=== PATIENT | male | born 1940 | race Caucasian/White ===

== ENCOUNTER 2019-01-26 15:17 | Emergency (ER) | payer MEDICARE, BC ==
[2019-01-26 15:31] VITALS: BP 181/69; PULSE 66
--- NOTE | 2019-01-26 16:10 | EDM.PDOC ---
ED HPI GENERAL MEDICAL PROBLEM - General Chief Complaint: Laceration Stated Complaint: Laceration Time Seen by Provider: 01/26/19 15:23 Source of Information: Reports: Patient History Limitations: Reports: No Limitations - History of Present Illness INITIAL COMMENTS - FREE TEXT/NARRATIVE: Patient is a 78-year-old who was out in [facility] yesterday he has started his would mail and when they put up like to cut the plaque kicked out and hit him in the head patient is on Plavix and aspirin so a CT was done immediately there was no intracranial bleed bleeding on the scalp was controlled with pressure Onset: Today Duration: Hour(s): (One hour) Location: Reports: Head Quality: Reports: Ache Severity: Mild Improves with: Reports: Other (Pressure dressing) Worsens with: Reports: None Associated Symptoms: Reports: No Other Symptoms Treatments 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: Aspirin, Other Medication(s) (Plavix) - Related Data Allergies Allergy/AdvReac Type Severity Reaction Status Date / Time erythromycin base Allergy Hives Verified 01/26/19 15:21 propoxyphene napsylate Allergy Hives Verified 01/26/19 15:21 [From Darvocet-N] Home Meds: Home Meds Albuterol [Ventolin HFA] 1 puff INH Q4H PRN 09/14/14 [History] Albuterol/Ipratropium [DuoNeb 3.0-0.5 MG/3 ML] 3 ml NEB QID 09/14/14 [History] Budesonide [Pulmicort] 0.5 mg IH BID 09/14/14 [History] Calcium Carbonate [Tums Extra Strength] 750 mg PO BID 09/14/14 [History] Cholecalciferol (Vitamin D3) [Vitamin D3] 400 units PO BID 09/14/14 [History] Clopidogrel [Plavix] 75 mg PO DAILY 09/14/14 [History] Fluticasone Propionate [Flonase] 16 gm AMY DAILY 09/14/14 [History] Hydroxychloroquine [Plaquenil] 200 mg PO DAILY 09/14/14 [History] Multivitamin [Daily Vitamin] 1 each PO DAILY 09/14/14 [History] Potassium Chloride [Klor-Con 10] 10 meq PO BIDMEALS 09/14/14 [History] Rosuvastatin [Crestor] 20 mg PO DAILY 09/14/14 [History] Simethicone 80 mg PO BEDTIME PRN 09/14/14 [History] traMADol [Ultram] 50 mg PO Q6H PRN 09/14/14 [History] Acetaminophen [Tylenol] 650 mg PO Q4H PRN #100 tablet 09/15/14 [Rx] Isosorbide Mononitrate [Imdur] 30 mg PO BEDTIME #30 tab.er 09/15/14 [Rx] Levothyroxine [Synthroid] 50 mcg PO ACBREAKFAST #90 tab 09/15/14 [Rx] Metoprolol Succinate [Toprol XL] 12.5 mg PO DAILY #30 tab.er 09/15/14 [Rx] Nitroglycerin [Nitrostat] 0.4 mg SL ASDIRECTED PRN #25 tab.sl 09/15/14 [Rx] Ranitidine [Zantac] 150 mg PO BID #60 tablet 09/15/14 [Rx] Aspirin [Halfprin] 81 mg PO DAILY 03/15/16 [History] Clotrimazole/Betamethasone Dip [Lotrisone Cream] 1 applic TOP BID 03/15/16 [ History] Cyclobenzaprine [Flexeril] 1 tab PO TID 03/15/16 [History] traZODone HCl [Trazodone HCl] 50 mg PO BEDTIME 03/15/16 [History] Acetaminophen [Tylenol] 650 mg PO Q6HR PRN 03/16/16 [History] Past Medical History HEENT History: Reports: Cataract Cardiovascular History: Reports: Angina, Arrhythmia, CAD, Hypertension Other Cardiovascular History: Acute Coronary Occlusion with out myocardial infarction. Mitral Valve Stenosis. Aortic valve Stenosis. Right Bundle Branch Block. Supraventricular premature beats Respiratory History: Reports: COPD Gastrointestinal History: Reports: Colon Polyp, Diverticulosis, GERD, PUD, Other (See Below) Other Gastrointestinal History: unspecified neoplasm of digestive system. gastritis. Diaphragmatic hernia Genitourinary History: Reports: Prostate Disorder, Renal Disease, Urinary Incontinence, Other (See Below) Other Genitourinary History: atrophy of testis. impotence. hypertrophy of breast Musculoskeletal History: Reports: Neck Pain, Chronic, Osteoarthritis Other Musculoskeletal History: carpal tunnel syndrome Endocrine/Metabolic History: Reports: Hypothyroidism Hematologic History: Reports: Anemia - Past Surgical History HEENT Surgical History: Reports: Adenoidectomy, Cataract Surgery, Tonsillectomy Male Surgical History: Reports: TURP-Transurethral Resection of Prostate Musculoskeletal Surgical History: Reports: Shoulder Surgery, Other (See Below) Social & Family History - Tobacco Use Smoking Status *Q: Former Smoker Packs/Tins Daily: 1.0 Used Tobacco, but Quit: Yes Month/Year Tobacco Last Used: - Caffeine Use Caffeine Use: Reports: Coffee - Alcohol Use Days Per Week of Alcohol Use: 2 Number of Drinks Per Day: 1 Total Drinks Per Week: 2 - Recreational Drug Use Recreational Drug Use: No - Living Situation & Occupation Living situation: Reports: Occupation: Retired ED ROS GENERAL - Review of Systems Review Of Systems: See Below Constitutional: Reports: No Symptoms HEENT: Reports: No Symptoms Respiratory: Reports: No Symptoms Cardiovascular: Reports: No Symptoms Endocrine: Reports: No Symptoms GI/Abdominal: Reports: No Symptoms : Reports: No Symptoms Musculoskeletal: Reports: No Symptoms Skin: Reports: No Symptoms Neurological: Reports: No Symptoms Psychiatric: Reports: No Symptoms Hematologic/Lymphatic: Reports: No Symptoms Immunologic: Reports: No Symptoms ED EXAM, SKIN/RASH Exam: See Below Exam Limited By: No Limitations General Appearance: Alert, WD/WN, No Apparent Distress Ears: Normal External Exam, Normal Canal, Hearing Grossly Normal, Normal TMs Nose: Normal Inspection, Normal Mucosa, No Blood Throat/Mouth: Normal Inspection, Normal Lips, Normal Teeth, Normal Gums, Normal Oropharynx, Normal Voice, No Airway Compromise Head: Normocephalic, Other (Laceration of occipital area scalp) Neck: Normal Inspection, Supple, Non-Tender, Full Range of Motion Respiratory/Chest: No Respiratory Distress, Lungs Clear, Normal Breath Sounds, No Accessory Muscle Use, Chest Non-Tender Cardiovascular: Normal Peripheral Pulses, Regular Rate, Rhythm, No Edema, No Gallop, No JVD, No Murmur, No Rub GI/Abdominal: Normal Bowel Sounds, Soft, Non-Tender, No Organomegaly, No Distention, No Abnormal Bruit, No Mass (Male) Exam: Deferred Rectal (Males) Exam: Deferred Back Exam: Normal Inspection, Full Range of Motion, NT Extremities: Normal Inspection, Normal Range of Motion, Non-Tender, No Pedal Edema, Normal Capillary Refill Neurological: Alert, Oriented, CN II-XII Intact, Normal Cognition, Normal Gait, Normal Reflexes, No Motor/Sensory Deficits Psychiatric: Normal Affect, Normal Mood Skin: Wound/Incision (Abrasion superficial about 1-1/2 cm round with a 1 cm ragged edge laceration this was glued with Dermabond a second laceration 4 cm semicircular white with was half a centimeter at the widest point no bleeding this was controlled with Dermabond) Lymphatic: No Adenopathy ED SKIN PROCEDURES - Additional/Other Procedure(s) Other (Free Text) Procedure(s): Patient is a 78-year-old who was hit in the head with a plank while trying to mill At this time he was brought into the ER by ambulance denies loss of consciousness neck pain or any concerns other than right knee pain which is old area was prepped and draped once the area was cleaned using Dermabond the skin was approximated patient tolerated well we'll go ahead and send him home at this point Course - Vital Signs Last Recorded V/S: Last Vital Signs Temp 98.3 F 01/26/19 15:30 Pulse 66 01/26/19 15:30 Resp 12 01/26/19 15:30 BP 181/69 H 01/26/19 15:30 Pulse Ox 68 L 01/26/19 15:30 - Orders/Labs/Meds Orders: Active Orders 24 hr Category Date Time Status Head wo Cont [CT] Stat Exams 01/26/19 15:27 Ordered BASIC METABOLIC PANEL,BMP [CHEM] Stat Lab 01/26/19 15:29 Ordered Labs: Laboratory Tests 01/26/19 Range/Units 15:49 WBC 9.7 (4.0-10.2) K/uL RBC 4.64 (4.33-5.41) M/uL Hgb 13.6 (13.1-16.8) g/dL Hct 42.0 (39.0-49.0) % MCV 90.5 (84.0-98.0) fL MCH 29.3 (28.2-33.3) pg MCHC 32.4 (31.7-36.0) g/dL RDW 14.1 (11.2-14.1) % Plt Count 202 (150-350) K/uL Neut % (Auto) 77.9 (45.0-80.0) % Lymph % (Auto) 10.5 (10.0-50.0) % [place] % (Auto) 8.8 (2.0-14.0) % Eos % (Auto) 2.2 (0.0-5.0) % Baso % (Auto) 0.6 (0.0-2.0) % Neut # (Auto) 7.56 H (1.40-7.00) K/uL Lymph # (Auto) 1.02 (0.50-3.50) K/uL [place] # (Auto) 0.85 (0.00-1.00) K/uL Eos # (Auto) 0.21 (0.00-0.50) K/uL Baso # (Auto) 0.06 (0.00-0.20) K/uL Departure - Departure Time of Disposition: 16:16 Disposition: Home, Self-Care 01 Condition: Fair Clinical Impression: Abrasion, Broken skin - Discharge Information *PRESCRIPTION DRUG MONITORING PROGRAM REVIEWED*: No *COPY OF PRESCRIPTION DRUG MONITORING REPORT IN PATIENT PORSHA: No Additional Instructions: Wound was cleaned and prepped Dermabond was applied patient tolerated well sent home in satisfactory condition follow-up with primary - My Orders Last 24 Hours: My Active Orders 01/26/19 15:27 Head wo Cont [CT] Stat 01/26/19 15:29 BASIC METABOLIC PANEL,BMP [CHEM] Stat - Assessment/Plan Last 24 Hours: My Active Orders 01/26/19 15:27 Head wo Cont [CT] Stat 01/26/19 15:29 BASIC METABOLIC PANEL,BMP [CHEM] Stat
== END 2019-01-26 16:35 | disposition home or self-care (01) ==
LOC: LL.ED 15:17
DX: S01.01XA Laceration without foreign body of scalp, initial encounter (principal); I10 Essential (primary) hypertension; J44.9 Chronic obstructive pulmonary disease, unspecified; K21.9 Gastro-esophageal reflux disease without esophagitis; E03.9 Hypothyroidism, unspecified; M19.90 Unspecified osteoarthritis, unspecified site; Z79.01 Long term (current) use of anticoagulants; Z79.82 Long term (current) use of aspirin; Z88.1 Allergy status to other antibiotic agents; Z88.8 Allergy status to other drugs, medicaments and biological substances; Z79.899 Other long term (current) drug therapy; Z87.891 Personal history of nicotine dependence; W22.8XXA Striking against or struck by other objects, initial encounter
CPT/HCPCS: 12002; 36415; 70450; 80048; 85025; 99284-25

== ENCOUNTER 2019-03-29 20:33 | Emergency (ER) | payer MEDICARE, BC ==
[2019-03-29] MEDS: Labetalol 20 MG/4 ML Syringe ONE (21:01)
[2019-03-29 21:26] LABS: CHLORIDE,CL 104 mmol/L (98-107); SODIUM,NA 142 mmol/L (136-145)
--- NOTE | 2019-03-29 21:30 | EDM.PDOC ---
ED HPI GENERAL MEDICAL PROBLEM - General Chief Complaint: Chest Pain Stated Complaint: Chest pain Time Seen by Provider: 03/29/19 21:26 Source of Information: Reports: Patient History Limitations: Reports: No Limitations - History of Present Illness INITIAL COMMENTS - FREE TEXT/NARRATIVE: Patient is a 79-year-old gentleman who is seen in the ER with history of chest discomfort radiating to the back for the last 12 hours patient states that this is a very pain. 911 was called 4 baby aspirins given an one nitroglycerin with no improvement Onset: Today, Gradual Duration: Hour(s):, Recurring Location: Reports: Chest Quality: Reports: Ache, Throbbing Severity: Moderate Improves with: Reports: None Worsens with: Reports: Breathing, Movement Context: Reports: Exercise Associated Symptoms: Reports: No Other Symptoms Upper Back Pain Score (Numeric/FACES): 0 - Related Data Allergies Allergy/AdvReac Type Severity Reaction Status Date / Time erythromycin base Allergy Hives Verified 01/26/19 15:21 propoxyphene napsylate Allergy Hives Verified 01/26/19 15:21 [From HarshilGuillermina] Home Meds: Home Meds Albuterol/Ipratropium [DuoNeb 3.0-0.5 MG/3 ML] 3 ml NEB Q4HR PRN 09/14/14 [ History] Budesonide [Pulmicort] 0.5 mg IH BID 09/14/14 [History] Calcium Carbonate [Tums Extra Strength] 750 mg PO BIDMEALS 09/14/14 [History] Cholecalciferol (Vitamin D3) [Vitamin D3] 400 units PO BID 09/14/14 [History] Clopidogrel [Plavix] 75 mg PO DAILY 09/14/14 [History] Fluticasone Propionate [Flonase] 16 gm AMY DAILY 09/14/14 [History] Multivitamin [Daily Vitamin] 1 each PO DAILY 09/14/14 [History] Potassium Chloride [Klor-Con 10] 10 meq PO BIDMEALS 09/14/14 [History] traMADol [Ultram] 50 mg PO Q6H PRN 09/14/14 [History] Isosorbide Mononitrate [Imdur] 30 mg PO BEDTIME #30 tab.er 09/15/14 [Rx] Levothyroxine [Synthroid] 50 mcg PO ACBREAKFAST #90 tab 04/28/15 [Rx] Metoprolol Succinate [Toprol XL] 12.5 mg PO DAILY #30 tab.er 09/15/14 [Rx] Nitroglycerin [Nitrostat] 0.4 mg SL ASDIRECTED PRN #25 tab.sl 09/15/14 [Rx] Ranitidine [Zantac] 150 mg PO BID #60 tablet 09/15/14 [Rx] Aspirin [Halfprin] 81 mg PO DAILY 03/15/16 [History] traZODone HCl [Trazodone HCl] 50 mg PO BEDTIME 03/15/16 [History] Acetaminophen [Tylenol] 650 mg PO Q6HR PRN 03/16/16 [History] Fluorometholone [Fluorometholone 0.1% Ophth Susp] 1 drop EYEBOTH BID 03/29/19 [ History] Pravastatin Sodium [Pravastatin (Pravachol)] 40 mg PO BEDTIME 03/29/19 [History] cycloSPORINE [Restasis] 1 drop EYEBOTH BID 03/29/19 [History] Past Medical History HEENT History: Reports: Cataract Cardiovascular History: Reports: Angina, Arrhythmia, CAD, Hypertension Other Cardiovascular History: Acute Coronary Occlusion with out myocardial infarction. Mitral Valve Stenosis. Aortic valve Stenosis. Right Bundle Branch Block. Supraventricular premature beats Respiratory History: Reports: COPD Gastrointestinal History: Reports: Colon Polyp, Diverticulosis, GERD, PUD, Other (See Below) Other Gastrointestinal History: unspecified neoplasm of digestive system. gastritis. Diaphragmatic hernia Genitourinary History: Reports: Prostate Disorder, Renal Disease, Urinary Incontinence, Other (See Below) Other Genitourinary History: atrophy of testis. impotence. hypertrophy of breast Musculoskeletal History: Reports: Neck Pain, Chronic, Osteoarthritis Other Musculoskeletal History: carpal tunnel syndrome Endocrine/Metabolic History: Reports: Hypothyroidism Hematologic History: Reports: Anemia - Past Surgical History HEENT Surgical History: Reports: Adenoidectomy, Cataract Surgery, Tonsillectomy Male Surgical History: Reports: TURP-Transurethral Resection of Prostate Musculoskeletal Surgical History: Reports: Shoulder Surgery, Other (See Below) Social & Family History - Tobacco Use Smoking Status *Q: Never Smoker - Caffeine Use Caffeine Use: Reports: None - Alcohol Use Days Per Week of Alcohol Use: 3 Number of Drinks Per Day: 1 Total Drinks Per Week: 3 - Recreational Drug Use Recreational Drug Use: No - Living Situation & Occupation Living situation: Reports: Occupation: Retired ED ROS GENERAL - Review of Systems Review Of Systems: See Below Constitutional: Reports: No Symptoms HEENT: Reports: No Symptoms Respiratory: Reports: Shortness of Breath Cardiovascular: Reports: Chest Pain Endocrine: Reports: No Symptoms GI/Abdominal: Reports: No Symptoms : Reports: No Symptoms Musculoskeletal: Reports: No Symptoms Skin: Reports: No Symptoms ED EXAM, GENERAL - Physical Exam Exam: See Below Exam Limited By: No Limitations General Appearance: Alert, WD/WN, No Apparent Distress Ears: Normal External Exam, Normal Canal, Hearing Grossly Normal, Normal TMs Ear Exam: Bilateral Ear: Auricle Normal, Canal Normal, TM normal Nose: Normal Inspection, Normal Mucosa, No Blood Throat/Mouth: Normal Inspection, Normal Lips, Normal Teeth, Normal Gums, Normal Oropharynx, Normal Voice, No Airway Compromise Head: Atraumatic, Normocephalic Neck: Normal Inspection, Supple, Non-Tender, Full Range of Motion Respiratory/Chest: Lungs Clear Cardiovascular: Regular Rate, Rhythm GI/Abdominal: Normal Bowel Sounds, Soft, Non-Tender, No Organomegaly, No Distention, No Abnormal Bruit, No Mass (Male) Exam: No Hernia, Normal Inspection, Normal Prostate, Circumcised Rectal (Males) Exam: Normal Exam, Normal Rectal Tone, Prostate Normal Back Exam: Normal Inspection, Full Range of Motion, NT Extremities: Normal Inspection, Normal Range of Motion, Non-Tender, Normal Capillary Refill, No Pedal Edema Neurological: Alert, Oriented, CN II-XII Intact, Normal Cognition, Normal Gait, Normal Reflexes, No Motor/Sensory Deficits Psychiatric: Normal Affect, Normal Mood Skin Exam: Warm, Dry, Intact, Normal Color, No Rash Lymphatic: No Adenopathy Course - Vital Signs Last Recorded V/S: Last Vital Signs Temp 97.6 F 03/29/19 20:43 Pulse 66 03/29/19 20:43 Resp 18 03/29/19 20:43 BP 192/82 H 03/29/19 20:43 Pulse Ox 97 03/29/19 20:43 - Orders/Labs/Meds Orders: Active Orders 24 hr Category Date Time Status Chest 1V Frontal [CR] Routine Exams 03/29/19 Taken CBC WITH AUTO DIFF [HEME] Routine Lab 03/29/19 20:40 Received CK W CKMB [CHEM] Routine Lab 03/29/19 20:40 Received COMPREHENSIVE METABOLIC PN,CMP [CHEM] Routine Lab 03/29/19 20:40 Received D-DIMER QUANTITATIVE [COAG] Routine Lab 03/29/19 20:40 Received INR,PT,PROTHROMBIN TIME [COAG] Routine Lab 03/29/19 20:40 Received LACTIC ACID [CHEM] Routine Lab 03/29/19 20:40 Received MAGNESIUM [CHEM] Routine Lab 03/29/19 20:40 Received PRO B-TYPE NATRIUR PEPT,BNPPRO [CHEM] Routine Lab 03/29/19 20:40 Received PTT,PARTIAL THROMBOPLSTIN TIME [COAG] Routine Lab 03/29/19 20:40 Received TROPONIN I [CHEM] Routine Lab 03/29/19 20:40 Received TSH ULTRASENSITIVE [CHEM] Routine Lab 03/29/19 20:40 Received Meds: Medications Discontinued Medications Generic Name Dose Route Start Last Admin Trade Name Preet PRN Reason Stop Dose Admin Labetalol HCl Confirm 03/29/19 20:56 03/29/19 21:01 Normodyne Administered 03/29/19 20:57 5 mg Dose Administration 20 mg .ROUTE .STK-MED ONE Departure - Departure Time of Disposition: 21:30 Disposition: Home, Self-Care 01 Condition: Good Clinical Impression: Non-cardiac chest pain, Arthritis - Discharge Information *PRESCRIPTION DRUG MONITORING PROGRAM REVIEWED*: No *COPY OF PRESCRIPTION DRUG MONITORING REPORT IN PATIENT PORSHA: No Care Plan Goals: Patient will go home he is to take his regular medications patient blood pressure medications. - My Orders Last 24 Hours: My Active Orders 03/29/19 Chest 1V Frontal [CR] Routine 03/29/19 20:40 CBC WITH AUTO DIFF [HEME] Routine CK W CKMB [CHEM] Routine COMPREHENSIVE METABOLIC PN,CMP [CHEM] Routine D-DIMER QUANTITATIVE [COAG] Routine INR,PT,PROTHROMBIN TIME [COAG] Routine LACTIC ACID [CHEM] Routine MAGNESIUM [CHEM] Routine PRO B-TYPE NATRIUR PEPT,BNPPRO [CHEM] Routine PTT,PARTIAL THROMBOPLSTIN TIME [COAG] Routine TROPONIN I [CHEM] Routine TSH ULTRASENSITIVE [CHEM] Routine - Assessment/Plan Last 24 Hours: My Active Orders 03/29/19 Chest 1V Frontal [CR] Routine 03/29/19 20:40 CBC WITH AUTO DIFF [HEME] Routine CK W CKMB [CHEM] Routine COMPREHENSIVE METABOLIC PN,CMP [CHEM] Routine D-DIMER QUANTITATIVE [COAG] Routine INR,PT,PROTHROMBIN TIME [COAG] Routine LACTIC ACID [CHEM] Routine MAGNESIUM [CHEM] Routine PRO B-TYPE NATRIUR PEPT,BNPPRO [CHEM] Routine PTT,PARTIAL THROMBOPLSTIN TIME [COAG] Routine TROPONIN I [CHEM] Routine TSH ULTRASENSITIVE [CHEM] Routine
[2019-03-29 22:58] VITALS: BP 167/86; PULSE 59
== END 2019-03-29 21:50 | disposition home or self-care (01) ==
LOC: LL.ED 20:33
DX: R07.89 Other chest pain (principal); M19.90 Unspecified osteoarthritis, unspecified site; I25.10 Atherosclerotic heart disease of native coronary artery without angina pectoris; I10 Essential (primary) hypertension; J44.9 Chronic obstructive pulmonary disease, unspecified; E03.9 Hypothyroidism, unspecified; K21.9 Gastro-esophageal reflux disease without esophagitis; Z88.1 Allergy status to other antibiotic agents; Z88.5 Allergy status to narcotic agent; Z79.899 Other long term (current) drug therapy; Z79.51 Long term (current) use of inhaled steroids; Z79.02 Long term (current) use of antithrombotics/antiplatelets; Z79.890 Hormone replacement therapy; Z79.01 Long term (current) use of anticoagulants
CPT/HCPCS: 36415; 71045; 80053; 82550; 82553; 83605; 83735; 83880; 84443; 84484; 85025; 85379; 85610; 85730; 93005; 99285-25; J3490

== ENCOUNTER 2019-04-10 10:21 | Day surgery (SDC) | payer MEDICARE, BC ==
[~2019-04-10 10:21] MED LIST: Propofol 200 MG/20 ML SDV ONE
[2019-04-10] MEDS ORDERED: Sodium Chloride 0.9% 10 ML Syringe FLUSH PRN (11:00)
[2019-04-10] MEDS: Lactated Ringers 1,000 ML IV SCH (11:30)
--- NOTE | 2019-04-10 11:42 | PCM.PN ---
- General Info Date of Service: 04/10/19 - Review of Systems Systems Review Comment:: 79-year-old male with history of colon polyps here for surveillance colonoscopy. He denies any recent change in bowel pattern. He is medically stable to proceed today. His recent history and physical is reviewed and no significant changes are noted. I discussed the proposed colonoscopy with the patient. He agrees to proceed accepting risks. - Patient Data Vitals - Most Recent: Last Vital Signs Temp 97.2 F 04/10/19 10:50 Pulse 61 04/10/19 10:50 Resp 20 04/10/19 10:50 BP 146/74 H 04/10/19 10:50 Pulse Ox 100 04/10/19 10:50 Weight - Most Recent: 78.925 kg Med Orders - Current: Current Medications Lactated Ringer's (Ringers, Lactated) 1,000 mls @ 125 mls/hr IV ASDIRECTED LINDA Last Admin: 04/10/19 11:30 Dose: 125 mls/hr Sodium Chloride (Saline Flush) 10 ml FLUSH ASDIRECTED PRN PRN Reason: Keep Vein Open Discontinued Medications Propofol (Diprivan 20 Ml) Confirm Administered Dose 200 mg .ROUTE .STK-MED ONE Stop: 04/10/19 08:42 - Problem List Review Problem List Initiated/Reviewed/Updated: Yes - My Orders Last 24 Hours: My Active Orders 04/10/19 11:00 Patient Status [ADT] Routine Peripheral IV Care [RC] . DIRECTED Verify Patient Consent Obtain [RC] ASDIRECTED Lactated Ringers [Ringers, Lactated] 1,000 ml IV ASDIRECTED Sodium Chloride 0.9% [Saline Flush] 10 ml FLUSH ASDIRECTED PRN Peripheral IV Insertion Adult [OM.PC] Routine - Assessment Assessment:: history of colon polyps - Plan Plan:: colonoscopy
[2019-04-10] MEDS ORDERED: Propofol 200 MG/20 ML SDV ONE (11:44)
--- NOTE | 2019-04-10 12:26 | PCM.OPNOTE ---
- General Post-Op/Procedure Note Date of Surgery/Procedure: 04/10/19 Operative Procedure(s): Colonoscopy with polypectomy Findings: Polyps x2 Extensive Sigmoid Diverticulosis Pre Op Diagnosis: History of colon polyps Post-Op Diagnosis: Colon Polyps. Sigmoid Diverticulosis Anesthesia Technique: MAC Primary Surgeon: Jose Miller Pathology: Colon Polyps EBL in mLs: 0 Complications: None Condition: Good
[2019-04-10 13:04] VITALS: PULSE 51
[2019-04-10 13:05] VITALS: BP 147/75
--- NOTE | 2019-04-10 16:47 | OR ---
Date of Procedure: 04/10/2019 PREOPERATIVE DIAGNOSIS: History of colon polyps. POSTOPERATIVE DIAGNOSES: Colon polyps and sigmoid diverticulosis. OPERATIONS PERFORMED: Colonoscopy with polypectomy. INDICATIONS FOR SURGERY: This 79-year-old male has a known history of colon polyps. He comes today for surveillance colonoscopy. FINDINGS: Two polyps were noted on today's exam. There is a 7-mm polyp noted in the transverse colon and a 3-mm polyp in the ascending colon. The patient also has extensive sigmoid diverticulosis. There is some angulation of the colon as result of this, although there are no signs of acute inflammation. DESCRIPTION OF PROCEDURE: The patient was taken to the operating room. He was given intravenous sedation and with him in the left lateral decubitus position, a digital rectal exam was performed showing no rectal masses. The Olympus colonoscope was inserted into the rectum. Retroflexed examination of the rectal canal was performed. The scope was then carefully advanced under direct visualization through the entire length of the colon until the cecum was reached. There was some tortuosity of the colon and that did require hand pressure, but the cecum was able to be safely accessed and clearly visualized. The ileocecal valve was viewed as well as the light noting to transilluminate the abdominal wall in the right lower quadrant. After examining the cecum, the scope was slowly withdrawn sequentially re-examining the colonic segments. During insertion and withdrawal of the scope, the above-described polyps were identified. At each of these locations, the polyp was removed with a cautery snare. The larger polyp was retrieved. The smaller polyp was destroyed with cautery and no specimen was obtained from this. After the colon and rectum had been completely examined, and with no sign of any complication, the scope was removed and the patient was taken from the operating room in satisfactory condition. ESTIMATED BLOOD LOSS: Zero. COMPLICATIONS: None. PROGNOSIS: Good. ITALIA Miller MD /[id number]
== END 2019-04-10 13:29 | disposition home or self-care (01) ==
LOC: LL.SDS 10:21
PROVIDERS: ATTEND Surgery
DX: Z12.11 Encounter for screening for malignant neoplasm of colon (principal); D12.3 Benign neoplasm of transverse colon; K57.30 Diverticulosis of large intestine without perforation or abscess without bleeding; K21.9 Gastro-esophageal reflux disease without esophagitis; Q43.8 Other specified congenital malformations of intestine; J44.9 Chronic obstructive pulmonary disease, unspecified; I25.10 Atherosclerotic heart disease of native coronary artery without angina pectoris; E78.49 Other hyperlipidemia; Z86.010 Personal history of colon polyps; Z79.899 Other long term (current) drug therapy; Z79.02 Long term (current) use of antithrombotics/antiplatelets; Z79.82 Long term (current) use of aspirin; Z88.1 Allergy status to other antibiotic agents; Z88.8 Allergy status to other drugs, medicaments and biological substances; Z87.891 Personal history of nicotine dependence
CPT/HCPCS: 00811; 88305; J2704; J7120

== ENCOUNTER 2022-11-26 13:26 | Emergency (ER) | payer BC, MEDICARE, OTHER ==
[2022-11-26 13:28] VITALS: BP 163/71; PULSE 72
[2022-11-26] MEDS ORDERED: Lidocaine 1% 5 ML VIAL INJECT ONE (13:39)
== END 2022-11-26 14:11 | disposition home or self-care (01) ==
LOC: SUPCPDRO 13:26 → LL.ED 13:26
DX: S01.511A Laceration without foreign body of lip, initial encounter (principal); E78.00 Pure hypercholesterolemia, unspecified; I10 Essential (primary) hypertension; J44.9 Chronic obstructive pulmonary disease, unspecified; K21.9 Gastro-esophageal reflux disease without esophagitis; E03.9 Hypothyroidism, unspecified; Z79.899 Other long term (current) drug therapy; Z79.51 Long term (current) use of inhaled steroids; Z88.1 Allergy status to other antibiotic agents; Z88.8 Allergy status to other drugs, medicaments and biological substances; Z87.891 Personal history of nicotine dependence; Z95.5 Presence of coronary angioplasty implant and graft; Z79.82 Long term (current) use of aspirin; W18.00XA Striking against unspecified object with subsequent fall, initial encounter
CPT/HCPCS: 12011; 99282; 99283; J3490

== ENCOUNTER 2024-06-12 08:10 | Day surgery (SDC) | payer MEDICARE ==
[~2024-06-12 08:10] MED LIST changes: +Midazolam 1 MG/ML 2 ML SDV ONE
[2024-06-12] MEDS: Lactated Ringers 1,000 ML IV SCH (08:30)
[2024-06-12] MEDS ORDERED: Sodium Chloride 0.9% 10 ML Syringe FLUSH PRN (08:30)
[2024-06-12] MEDS ORDERED: Propofol 200 MG/20 ML SDV IV ONE (09:40)
[2024-06-12] MEDS: Albuterol 0.083% 2.5 MG/3 ML Neb Soln NEB ONE (09:41)
[2024-06-12 14:17] VITALS: BP 132/67; PULSE 64
== END 2024-06-12 11:05 ==
LOC: LL.SDS 08:10
PROVIDERS: ATTEND Surgery
DX: Z12.11 Encounter for screening for malignant neoplasm of colon (principal); D12.3 Benign neoplasm of transverse colon; K57.30 Diverticulosis of large intestine without perforation or abscess without bleeding; J44.9 Chronic obstructive pulmonary disease, unspecified; I10 Essential (primary) hypertension; I25.10 Atherosclerotic heart disease of native coronary artery without angina pectoris; Z87.891 Personal history of nicotine dependence; Z86.0101 Personal history of adenomatous and serrated colon polyps
CPT/HCPCS: 45380; J2250; J2704; J7120

== ENCOUNTER 2024-11-23 19:16 | Emergency (ER) | payer MEDICARE ==
[2024-11-23 21:37] LABS: BASOPHILS ABSOLUTE AUTO 0.05 K/uL (0.00-0.20); BASOPHILS PERCENT AUTO 0.4 % (0.0-2.0); EOSINOPHILS ABSOLUTE AUTO 0.32 K/uL (0.00-0.50); EOSINOPHILS PERCENT AUTO 2.7 % (0.0-5.0); IMMATURE GRAN ABSOLUTE AUTO 0.03 10^3/uL (0.00-0.04); IMMATURE GRAN PERCENT AUTO 0.3 % (0.0-0.4); LYMPHOCYTES ABSOLUTE AUTO 1.33 K/uL (0.50-3.50); LYMPHOCYTES PERCENT AUTO 11.1 % (10.0-50.0); MONOCYTES ABSOLUTE AUTO 0.89 K/uL (0.00-1.00); MONOCYTES PERCENT AUTO 7.4 % (2.0-14.0); NEUTROPHILS ABSOLUTE AUTO 9.35 K/uL (1.40-7.00); NEUTROPHILS PERCENT AUTO 78.1 % (45.0-80.0); PLATELET COUNT,PLT 228 K/uL (150-350); RED BLOOD CELL COUNT 4.80 M/uL (4.33-5.41); RED CELL DISTRIBUTION WIDTH 12.8 % (11.2-14.1); WHITE BLOOD CELL COUNT,WBC 12.0 K/uL (4.0-10.2)
[2024-11-23 21:52] LABS: ALANINE AMINOTRANSFERASE,ALT 24.0 U/L (12-78); ASPARTATE AMNIOTRANSFERASE,AST 17.0 U/L (15-37); BILIRUBIN TOTAL 0.3 mg/dL (0.2-1.0); BLOOD UREA NITROGEN,BUN 15.0 mg/dL (7-18); CARBON DIOXIDE,CO2 24.2 mmol/L (21.0-32.0); CHLORIDE,CL 104.0 mmol/L (98-107); CREATININE 1.08 mg/dL (0.51-1.17); EST CRCL DRUG DOSING (CG) 43.5 mL/min; ESTIMATED GFR 67.0 mL/min (>=60); GLUCOSE RANDOM 128.0 mg/dL (70-99); POTASSIUM,K 4.4 mmol/L (3.5-5.1); PROTEIN TOTAL,TP 7.4 g/dL (6.4-8.2); SODIUM,NA 139.0 mmol/L (136-145)
[2024-11-23] MEDS ORDERED: Sodium Chloride 0.9% 10 ML Syringe FLUSH PRN (22:00)
[2024-11-23] MEDS: Ketorolac 15 MG/ML SDV IM ONE (22:10)
[2024-11-23] MEDS: Ketorolac 15 MG/ML SDV IVPUSH ONE (22:12)
[2024-11-23] MEDS: Diphtheria,Pertussis(Acell),Tetanus Vaccine 0.5 ML Syringe IM ONE (22:54)
[2024-11-23] MEDS: Amoxicillin/Clavulanate K 875-125 MG Tab PO ONE (23:12)
[2024-11-23] MEDS: Take Home: traMADol 50 MG, 4 Tab Pack PO ONE (23:36)
[2024-11-23 23:39] VITALS: BP 182/85; PULSE 64
== END 2024-11-23 23:23 | disposition home or self-care (01) ==
LOC: LL.ED 19:16
DX: S61.452A Open bite of left hand, initial encounter (principal); I25.10 Atherosclerotic heart disease of native coronary artery without angina pectoris; E78.00 Pure hypercholesterolemia, unspecified; I10 Essential (primary) hypertension; J44.9 Chronic obstructive pulmonary disease, unspecified; E03.9 Hypothyroidism, unspecified; Z23 Encounter for immunization; Z88.1 Allergy status to other antibiotic agents; Z88.8 Allergy status to other drugs, medicaments and biological substances; Z79.51 Long term (current) use of inhaled steroids; Z79.02 Long term (current) use of antithrombotics/antiplatelets; Z95.5 Presence of coronary angioplasty implant and graft; W54.0XXA Bitten by dog, initial encounter; Y93.89 Activity, other specified
CPT/HCPCS: 36415; 73130; 80053; 85025; 90471; 90715; 96374; 96375; 99284; A9270; J0696; J1885; J2003